=== PATIENT | male | born 1965 | race Caucasian/White ===

== ENCOUNTER → 2019-03-23 | Day surgery (SDC) | payer BC ==
[2019-03-17 12:34] VITALS: BMI 25.7
[~2019-03-23] MED LIST: LACTATED RINGERS 1,000 ML IV SCH; LIDOCAINE 1% 20 ML VIAL (10MG/ML) FOR IV START INTRADERMA PRN; PROPOFOL 10 MG/ML 20 ML VIAL IV ONE
[2019-03-23 09:43] VITALS: RESP 16; TEMP 97.9
--- NOTE | 2019-03-23 11:03 | P.PCN ---
Date of Procedure: 03/23/19 Description of Procedure: BRIEF HISTORY: Patient is a 53-year-old pleasant male scheduled for an elective colonoscopy as a part of colorectal cancer screening. The patient has a strong family history of colon cancer in his father who passed from recurrent disease in his 60s and his paternal grandfather. He reports last colonoscopy approximately 5 years ago which she believes was normal. Denies any change in bowel habits, abdominal pain. But does report intermittent blood per rectum with wiping and blood on toilet paper. PROCEDURE PERFORMED: Colonoscopy. PREOPERATIVE DIAGNOSIS: High risk colon cancer screening, family history of colon cancer, last colonoscopy approximately 5 years ago and normal. ESTIMATED BLOOD LOSS: Minimal. IV sedation per Anesthesia. PROCEDURE: After informed consent was obtained, the patient, was brought into the endoscopy unit. IV sedation was administered by Anesthesia under continuous monitoring. Digital rectal examination was normal. Initially the Olympus CF-190 flexible video colonoscope was then inserted in the rectum, gradually advanced into the cecum without any difficulty. Careful examination was performed as the scope was gradually being withdrawn. Ileocecal valve and the appendiceal orifice were visualized and appeared normal. Terminal ileum was intubated and appeared normal. Retroflexion in the cecum with no polyps or masses detected. Prep was excellent. Mucosa of the cecum, ascending colon, transverse colon, descending co sonny, sigmoid colon, and rectum appeared normal. Retroflexion was performed in the rectum and no lesions were seen, mild internal hemorrhoids. The patient tolerated the procedure well. IMPRESSION: Normal-appearing colon from rectum to cecum, colon was somewhat tortuous. Mild internal hemorrhoids. RECOMMENDATIONS: Findings of this examination were discussed with the patient and his . Okay to resume diet. Repeat colonoscopy in 5 years given family history of colon cancer.
[2019-03-23 11:17] VITALS: BP 121/78; PULSE 58
== END | disposition home or self-care (01) ==
LOC: ORWHC2ENDO 09:21
PROVIDERS: ATTEND Internal Medicine
DX: Z12.11 Encounter for screening for malignant neoplasm of colon (principal); K64.8 Other hemorrhoids; Z79.1 Long term (current) use of non-steroidal anti-inflammatories (NSAID); G43.909 Migraine, unspecified, not intractable, without status migrainosus
CPT/HCPCS: J2704; G0105